=== PATIENT | male | born 1990 | race Caucasian/White ===

== ENCOUNTER 2016-09-26 18:08 | Emergency (ER) | payer SELFPAY ==
[~2016-09-26 18:08] MED LIST: ACYCLOVIR400 MG PO; AMOXICILLIN875 MG PO; ATIVAN1 M2 PO; BACTRIM DS TAB1 EAC2 PO; BACTRIM DS1 TA1 PO; BACTRIM DS1 TAB PO; CEFDINIR300 M1 PO; CEPHALEXIN500 M1 PO; KEFLEX500 MG PO; LOTRISONE CREAM15 GM TP; NO HOME MEDICATION XX; NO HOME MEDS; NORCO 5-325 TA1 EACH PO; NORCO 5/325 TAB1 TAB PO; NORCO 7.5/3251 TA3 NG; PEN-VEE K500 MG PO
[2017-03-09] MEDS ORDERED: IBUPROFEN800 M1 PO (20:25)
[2017-03-09] MEDS ORDERED: NORCO 5/3251 TAB PO (20:25)
== END 2016-09-26 18:11 ==
LOC: EDMED 18:08
DX: J03.90 Acute tonsillitis, unspecified (principal); B37.2 Candidiasis of skin and nail; J45.909 Unspecified asthma, uncomplicated; F31.9 Bipolar disorder, unspecified; F90.9 Attention-deficit hyperactivity disorder, unspecified type; F17.210 Nicotine dependence, cigarettes, uncomplicated